=== PATIENT | male | born 1950 | race Caucasian/White ===

== ENCOUNTER 2016-10-18 11:37 | Emergency (ER) | payer OTHER ==
--- NOTE | 2016-10-18 11:49 | UCPHY ---
H & P Patient Type: New HPI/ROS: HPI CHIEF COMPLAINT: Abdominal pain HISTORY OF PRESENT ILLNESS: This patient very pleasant 66-year-old male significant past medical history for coronary artery disease, presents to the urgent care with right lower quadrant abdominal pain times 5 days patient states on Friday developed some right lower quadrant pain has been waxing waning it is a dull ache in nature, does not radiate specifically does not go to his testicles or back. He has not any nausea vomiting or diarrhea. Denies fever. Tells me the pain is worse when he goes to sit up or move, also hurts when he coughs. Denies chest pain or shortness of breath. Tells me the pain is located 1 focal area in the right lower quadrant. Denies abdominal wall strain, denies trauma, denies change in bowel habits. Denies urinary symptoms. Currently tells me his pain is 3/10 right lower quadrant dull ache. Past Medical History: Coronary artery disease with stents Past Surgical History: stent placement for coronary disease, cholecystectomy, meniscus repair Social History: denies daily use of drugs alcohol tobacco products works part- time Family History: noncontributory ROS REVIEW OF SYSTEMS: A comprehensive 10 point review of systems is otherwise negative aside from elements mentioned in the history of present illness. Exam Constitutional triage nursing summary reviewed, vital signs reviewed, awake/ alert. Eyes normal conjunctivae and sclera, EOMI, PERRLA. HENT normal inspection, atraumatic, moist mucus membranes, no epistaxis, neck supple/ no meningismus, no raccoon eyes. Respiratory clear to auscultation bilaterally, normal breath sounds, no respiratory distress, no wheezing. Cardiovascular rate normal, regular rhythm, no murmur, no edema, distal pulses normal. Gastrointestinal soft, focal tenderness in the right lower quadrant, no peritoneal signs, no rebound, no guarding, normal bowel sounds, no distension, no pulsatile mass. there is no palpable mass in the abdominal wall, no abdominal wall defect. Genitourinary no CVA tenderness. Musculoskeletal no midline vertebral tenderness, full range of motion, no calf swelling, no tenderness of extremities, no meningismus, good pulses, neurovascularly intact. Skin pink, warm, & dry, no rash, skin atraumatic. Neurologic awake, alert and oriented x 3, AAOx3, moves all 4 extremities equally, motor intact, sensory intact, CN II-XII intact, normal cerebellar, normal vision, normal speech. Psychiatric normal mood/affect. Heme/Lymph/Immune no lymphadenopathy. Differential diagnosis includes but is not limited to and in no particular order : Abdominal wall strain, internal hernia, hernia, acute appendicitis, Bowel obstruction, gallbladder disease, diverticulitis, colitis, enteritis, perforated viscus, gastritis, GERD, esophagitis, urinary tract infection, pyelonephritis, kidney stones Medical Decision Making: this patient had an IV established received IV fluid boluses patient will need a CT scan abdomen pelvis with IV contrast to rule out significant acute intra-abdominal pathology including acute appendicitis, internal hernia, bowel obstruction, hernia. will check blood work, he will be gently hydrated he has declined pain medicine at this time. Re-evaluation: CT scan of the abdomen pelvis with IV contrast The results of the study are shows no acute inflammatory process there is constipation seen, there is also a 3.8 cm liver lesion smoothing care doctor, if never worked up before needs further evaluation with MRI liver contrast protocol The study was read by Dr. Bryan Castro I viewed the images myself on the PACS system. 1348: re-evaluation of the patient the patient is resting comfortably at this time no acute distress. Abdomen remained soft. No guarding or peritoneal signs blood work reviewed is unremarkable, CT scan does not show any acute inflammatory process. Most likely this is a anterior musculoskeletal abdominal wall strain. Will place patient on ibuprofen. 1349: Patient understands return emergency room if there is any worsening symptoms includes worsening vomiting, fever, worsening pain. I do recommend that he follows up with his primary care doctor. I did explain that he has a liver lesion and this has never been worked up before needs evaluation. Source: Patient - Family History Significant Family History: No pertinent family hx Constitutional: Initial Vital Signs Temperature (C) 36.6 C 10/18/16 11:51 Heart Rate 95 10/18/16 11:51 Respiratory Rate 18 10/18/16 11:51 Blood Pressure 177/116 H 10/18/16 11:51 O2 Sat (%) 97 10/18/16 11:51 O2 Delivery Mode Room Air Allergies/Adverse Reactions: No Known Allergies Allergy (Unverified 10/18/16 11:48) Home Medications: Medication Instructions Recorded Alteplase 10/18/16 Ibuprofen [Motrin (*)] 800 mg PO Q6-8PRN #7 tab 10/18/16 Lipitor 10/18/16 Metroprolo 10/18/16 Ramipril 10/18/16 Medical Decision Making - Data Points Laboratory Results: Laboratory Results 10/18/16 12:24 10/18/16 12:24 10/18/16 10/18/16 10/18/16 12:24 12:24 12:24 WBC 7.87 10^3/uL 10^3/uL (3.80-9.50) RBC 5.03 10^6/uL 10^6/uL (4.40-6.38) Hgb 16.7 g/dL g/dL (13.7-17.5) Hct 46.9 % % (40.0-51.0) MCV 93.2 fL fL (81.5-99.8) MCH 33.2 pg pg (27.9-34.1) MCHC 35.6 g/dL g/dL (32.4-36.7) RDW 13.0 % % (11.5-15.2) Plt Count 166 10^3/uL 10^3/uL (150-400) MPV 10.0 fL fL (8.7-11.7) Neut % (Auto) 52.8 % % (39.3-74.2) Lymph % (Auto) 36.1 % % (15.0-45.0) [place] % (Auto) 7.5 % % (4.5-13.0) Eos % (Auto) 2.7 % % (0.6-7.6) Baso % (Auto) 0.5 % % (0.3-1.7) Nucleat RBC Rel Count 0.0 % % (0.0-0.2) Absolute Neuts (auto) 4.16 10^3/uL 10^3/uL (1.70-6.50) Absolute Lymphs (auto) 2.84 10^3/uL 10^3/uL (1.00-3.00) Absolute Monos (auto) 0.59 10^3/uL 10^3/uL (0.30-0.80) Absolute Eos (auto) 0.21 10^3/uL 10^3/uL (0.03-0.40) Absolute Basos (auto) 0.04 10^3/uL 10^3/uL (0.02-0.10) Absolute Nucleated RBC 0.00 10^3/uL 10^3/uL (0-0.01) Immature Gran % 0.4 % % (0.0-1.1) Immature Gran # 0.03 10^3/uL 10^3/uL (0.00-0.10) PT 13.1 SEC SEC (12.0-15.0) INR 1.02 (0.83-1.16) APTT 26.3 SEC SEC (23.0-38.0) VBG Lactic Acid Sodium 140 mEq/L mEq/L (134-144) Potassium 4.3 mEq/L mEq/L (3.5-5.2) Chloride 104 mEq/L mEq/L (97-110) Carbon Dioxide 24 mEq/l mEq/l (22-31) Anion Gap 12 mEq/L mEq/L (8-16) BUN 10 mg/dL mg/dL (7-23) Creatinine 0.8 mg/dL mg/dL (0.7-1.3) Estimated GFR > 60 Glucose 134 mg/dL H mg/dL (70-100) Calcium 9.3 mg/dL mg/dL (8.5-10.4) Total Bilirubin 1.1 mg/dL mg/dL (0.1-1.4) Conjugated Bilirubin 0.4 mg/dL mg/dL (0.0-0.5) Unconjugated Bilirubin 0.7 mg/dL mg/dL (0.0-1.1) AST 49 IU/L IU/L (17-59) ALT 68 IU/L IU/L (21-72) Alkaline Phosphatase 49 IU/L IU/L (38-126) Total Protein 7.2 g/dL g/dL (6.3-8.2) Albumin 3.9 g/dL g/dL (3.5-5.0) Lipase 195.0 IU/L IU/L (23-300) 10/18/16 12:24 WBC RBC Hgb Hct MCV MCH MCHC RDW Plt Count MPV Neut % (Auto) Lymph % (Auto) [place] % (Auto) Eos % (Auto) Baso % (Auto) Nucleat RBC Rel Count Absolute Neuts (auto) Absolute Lymphs (auto) Absolute Monos (auto) Absolute Eos (auto) Absolute Basos (auto) Absolute Nucleated RBC Immature Gran % Immature Gran # PT INR APTT VBG Lactic Acid 1.7 mmol/L mmol/L (0.7-2.1) Sodium Potassium Chloride Carbon Dioxide Anion Gap BUN Creatinine Estimated GFR Glucose Calcium Total Bilirubin Conjugated Bilirubin Unconjugated Bilirubin AST ALT Alkaline Phosphatase Total Protein Albumin Lipase Medications Given: Discontinued Medications Sodium Chloride (Ns) 1,000 mls @ 0 mls/hr IV ONCE ONE PRN Reason: Wide Open Stop: 10/18/16 12:00 Last Admin: 10/18/16 12:24 Dose: 1,000 mls Departure - Departure Disposition: Home, Routine, Self-Care Clinical Impression: Liver lesion Abdominal pain Qualifiers: Abdominal location: right lower quadrant Qualified Code(s): R10.31 - Right lower quadrant pain Condition: Good Instructions: Acute Abdominal Pain (ED) Additional Instructions: 1. Please follow up with her primary care doctor about your CT scan results. 2. Your CT scan did not show any acute inflammatory process to explain the right lower quadrant pain I feel that you may have a musculoskeletal abdominal wall injury. Referrals: Yobani Loco DO [Primary Care Provider] - As per Instructions Prescriptions: Ibuprofen [Motrin (*)] 800 mg PO Q6-8PRN #7 tab - PQRS PQRS Measurement: 134: Depression screening and followup, PRIME MD-PHQ2 (12 years and older) Over the last 2 weeks, how often have you been bothered by any of the following problems? 1. Feeling down, depressed, or hopeless? 2. Little interest or pleasure in doing things? Patient answered no to both 1 and 2 130: Documentation of medications. Reviewed all patient medications, doses, route and frequency. 226: Do you smoke? No. 47: 65 and older: Advanced care planning. Patient refused. 51: 18 years old and older with diagnosis of COPD, spirometry performance. Patient has no history of COPD 52: 18 years old and older with COPD and symptoms of COPD or FEV1<60% predicted prescribed a B Agonist. Spirometry not performed; equipment not available.
[2016-10-18 11:56] VITALS: TEMP 98
[2016-10-18] MEDS ORDERED: NS 1,000 ML IV ONE (11:59)
[2016-10-18] MEDS ORDERED: IOPAMIDOL (ISOVUE-300) 100 ML BTL IV ONE (12:08)
[2016-10-18 12:30] LABS: % IMMATURE GRANULYOCYTES 0.4 % (0.0-1.1); ABSOLUTE IMMATURE GRANULOCYTES 0.03 10^3/uL (0.00-0.10); ADD DIFF? NO; ADD MORPH? NO; ADD SCAN? NO; ATYPICAL LYMPHOCYTE FLAG 0 (0-99); FRAGMENT RBC FLAG 0 (0-99); HEMATOCRIT 46.9 % (40.0-51.0); HEMOGLOBIN 16.7 g/dL (13.7-17.5); LEFT SHIFT FLG 0 (0-99); LIPEMIA HEMOLYSIS FLAG 90 (0-99); MEAN CELL HEMOGLOBIN 33.2 pg (27.9-34.1); MEAN CELL HEMOGLOBIN CONCENTR. 35.6 g/dL (32.4-36.7); MEAN CELL VOLUME 93.2 fL (81.5-99.8); PLATELET CLUMPS FLAG 0 (0-99); PLATELET COUNT 166 10^3/uL (150-400); RED BLOOD CELL COUNT 5.03 10^6/uL (4.40-6.38)
[2016-10-18 12:42] LABS: INR 1.02 (0.83-1.16); PROTIME(PATIENT) 13.1 SEC (12.0-15.0)
[2016-10-18 12:43] LABS: APTT 26.3 SEC (23.0-38.0)
[2016-10-18 12:46] LABS: ALANINE AMINOTRANSFERASE 68 IU/L (21-72); ALBUMIN 3.9 g/dL (3.5-5.0); ALKALINE PHOSPHATASE 49 IU/L (38-126); ANION GAP 12 mEq/L (8-16); ASPARTATE AMINOTRANSFERASE 49 IU/L (17-59); BILIRUBIN,TOTAL 1.1 mg/dL (0.1-1.4); BILIRUBIN-CONJUGATED 0.4 mg/dL (0.0-0.5); BILIRUBIN-UNCONJUGATED 0.7 mg/dL (0.0-1.1); CALCIUM 9.3 mg/dL (8.5-10.4); CARBON DIOXIDE 24 mEq/l (22-31); CHLORIDE 104 mEq/L (97-110); CREATININE 0.8 mg/dL (0.7-1.3); GLOMERULAR FILTRATION RATE > 60; GLUCOSE 134 mg/dL (70-100); POTASSIUM 4.3 mEq/L (3.5-5.2); SODIUM 140 mEq/L (134-144); TOTAL PROTEIN 7.2 g/dL (6.3-8.2)
[2016-10-18 14:07] VITALS: BP 150/90; PULSE 88; RESP 14; O2SAT 92
== END 2016-10-18 14:07 | disposition home or self-care (01) ==
LOC: CED 11:37
DX: R10.31 Right lower quadrant pain (principal); K76.89 Other specified diseases of liver; I25.10 Atherosclerotic heart disease of native coronary artery without angina pectoris; Z95.5 Presence of coronary angioplasty implant and graft
CPT/HCPCS: 74177; G0463; Q9967; 80048-PO; 80076-PO; 83605-PO; 83690-PO; 85025-PO; 85610-PO; 85730-PO; 99205-PO

== ENCOUNTER → 2018-06-01 | Outpatient (CLI) | payer OTHER | LOC: FIMAGING 10:39 | PROVIDERS: ATTEND Family Medicine | DX: Z87.891 Personal history of nicotine dependence (principal); I10 Essential (primary) hypertension ==